=== PATIENT | male | born 1940 | race Caucasian/White ===

== ENCOUNTER 2024-10-25 13:19 | Observation (INO) | payer MEDICARE, OTHER ==
[~2024-10-25] VITALS: Ht 180.3 cm; Wt 91.3 kg
[2024-10-25 13:49] LABS: VENOUS BASE EXCESS -1.6 (-2.0-2.0); VENOUS HCO3 23.2 MMOL/L (23.0-27.0); VENOUS O2 SATURATION 77.7 % (60.0-80.0); VENOUS PARTIAL PRESSURE CO2 39.6 mmHg (38.0-50.0); VENOUS PARTIAL PRESSURE O2 43.8 mmHg (30.0-50.0); VENOUS PH 7.386 UNITS (7.330-7.430); VENOUS STANDARD HCO3 22.7 MMOL/L; VENOUS TOTAL CO2 24.4 MMOL/L (24.0-28.0)
[2024-10-25 13:56] LABS: KETONE, URINE AUTO RFX NEGATIVE (NEGATIVE); LEUKOCYTE ESTERASE UR AUTO RFX NEGATIVE (NEGATIVE); NITRITE, URINE AUTO RFX NEGATIVE (NEGATIVE); RBC, URINE AUTO RFX 8 /HPF (0-3); SQUAM EPITHELIAL CELL UR AURFX 0 /HPF (0-6); WBC, URINE AUTO RFX 0 /HPF (0-3)
[2024-10-25 14:08] LABS: BASO # 0.1 10^3/uL (0.0-0.2); BASO % 0.6 % (0.0-1.0); EOS # 0.2 10^3/uL (0.0-0.5); EOS % 2.0 % (0.0-3.0); LYMPH # 1.7 10^3/uL (1.5-5.0); LYMPH % 15.4 % (24.0-44.0); MONO # 1.0 10^3/uL (0.0-0.8); MONO % 8.9 % (2.0-8.0); NEUTROPHILS # 7.9 10^3/uL (1.5-8.5); NEUTROPHILS % 72.5 % (36.0-66.0); PLATELET COUNT, AUTOMATED 239 10^3/uL (150-450)
[2024-10-25 14:29] LABS: OSMOLALITY SERUM 273 MOSM/KG (280-301)
[2024-10-25] MEDS ORDERED: ISOVUE-370 76% 100 ML VIAL As Ordered ONE (14:37)
[2024-10-25 14:40] LABS: ETHYL ALCOHOL (ETHANOL) < 0.003 % (0.000-0.010)
[2024-10-25 14:41] LABS: SALICYLATE LEVEL 10.8 MG/DL (<30)
[2024-10-25 14:42] LABS: ALT/SGPT 25 U/L (7.0-40); AST/SGOT 33 U/L (<34); CALCIUM LEVEL 8.7 MG/DL (8.3-10.6); CARBON DIOXIDE LEVEL 25 MMOL/L (20-31); CHLORIDE LEVEL 95 MMOL/L (98-107); CK-MB VALUE MASS 3.4 NG/ML (<3.6); CREATININE FOR GFR 0.76 MG/DL (0.70-1.30); GLOMERULAR FILTRATION RATE 89.2 (>35); POTASSIUM SERUM 4.1 MMOL/L (3.5-5.1); SODIUM LEVEL 130 MMOL/L (136-145)
[2024-10-25 14:44] VITALS: BP 194/88; TEMP 96.6; O2SAT 98
[2024-10-25 14:46] LABS: CPK CREATINE PHOSPHOKINASE 142 U/L (46-171); MB/CK RELATIVE INDEX 2.39 (< OR =4)
[2024-10-25 15:05] LABS: INR 1.77
[2024-10-25] MEDS ORDERED: AZEL1SPR3 NARES (15:21)
[2024-10-25] MEDS ORDERED: DOFE500C PO (15:21)
[2024-10-25] MEDS ORDERED: ZOLP-533 PO (15:21)
[2024-10-25] MEDS ORDERED: PANT20TA6 PO (15:21)
[2024-10-25] MEDS ORDERED: FLUO-96 PO (15:21)
[2024-10-25] MEDS ORDERED: ASPI81TA26 PO (15:21)
[2024-10-25] MEDS ORDERED: LOSA50TA28 PO (15:21)
[2024-10-25] MEDS ORDERED: XARE20TA PO (15:21)
[2024-10-25] MEDS ORDERED: TRAN1DIS4 TOP (15:21)
[2024-10-25] MEDS ORDERED: AMLO25TA PO (15:21)
[2024-10-25] MEDS ORDERED: ALPR1TAB6 PO (15:21)
[2024-10-25] MEDS ORDERED: NITR4TASL SL (15:21)
[2024-10-25] MEDS ORDERED: ROSU20TA86 PO (15:21)
[2024-10-25] MEDS ORDERED: SLOWTAB2 PO (15:21)
[2024-10-25 15:30] VITALS: BP 187/76; O2SAT 97
[2024-10-25 15:35] VITALS: BP 178/86
[2024-10-25] MEDS ORDERED: HOME MED LIST COMPLETE! XX SCH (16:20)
[2024-10-25] MEDS: NS (Normal Saline) 0.9% 1,000 ML IV ONE (17:09)
[2024-10-25] MEDS ORDERED: MAALOX 30 ML SUSP *UDC PO PRN (20:10)
[2024-10-25] MEDS ORDERED: MOM 30 ML SUSPENSION UDC PO PRN (20:10)
[2024-10-25] MEDS ORDERED: ACETAMINOPHEN 325 MG TAB PO PRN (20:10)
[2024-10-25] MEDS: amLODIPine 5 MG TAB PO ONE (20:12)
[2024-10-25 21:00] VITALS: BP 169/85; TEMP 96.6; O2SAT 98
[2024-10-25] MEDS: AZELASTINE 137 MCG NASAL SPY 30 ML SCH (21:00)
[2024-10-25] MEDS: DOCUSATE SODIUM 100 MG CAPSULE PO SCH (21:26)
[2024-10-25] MEDS: ROSUVASTATIN 10 MG TAB PO SCH (21:26)
[2024-10-25 23:30] VITALS: BP 155/84; TEMP 98.1; O2SAT 94
[2024-10-26] MEDS ORDERED: HALOPERIDOL LACTATE 5 MG/ML VIAL IV ONE (01:30)
[2024-10-26] MEDS: MAG SULF 1GM/100ML (MAG RUN) 1 GM in IV 1 EA IV ONE (02:09)
[2024-10-26] MEDS: OLANZapine INTRAMUSCULAR 10MG VIAL IM ONE (02:13)
[2024-10-26 03:09] VITALS: BP 137/74; TEMP 97.7; O2SAT 97
[2024-10-26 04:00] VITALS: BP 137/74; TEMP 97.7; O2SAT 97
[2024-10-26 06:06] LABS: PLATELET COUNT, AUTOMATED 219 10^3/uL (150-450)
[2024-10-26 06:25] LABS: CALCIUM LEVEL 8.7 MG/DL (8.3-10.6); CARBON DIOXIDE LEVEL 23.0 MMOL/L (20-31); CHLORIDE LEVEL 100.0 MMOL/L (98-107); CREATININE FOR GFR 0.75 MG/DL (0.70-1.30); GLOMERULAR FILTRATION RATE 89.5 (>35); POTASSIUM SERUM 3.6 MMOL/L (3.5-5.1); SODIUM LEVEL 134.0 MMOL/L (136-145)
[2024-10-26] MEDS: PANTOPRAZOLE 40MG VIAL IV SCH (09:00)
[2024-10-26 09:48] VITALS: BP 131/68; O2SAT 98
[2024-10-26] MEDS: FLUoxetine 20 MG CAP PO SCH (09:51)
[2024-10-26] MEDS: LOSARTAN 50 MG TABLET PO SCH (09:51)
[2024-10-26 09:52] VITALS: BP 131/68
[2024-10-26] MEDS: ASPIRIN 81 MG ENTERIC TABLET PO SCH (09:52)
[2024-10-26] MEDS: amLODIPine 5 MG TAB PO SCH (09:52)
[2024-10-26 12:00] VITALS: BP 142/79; TEMP 97.7; O2SAT 97
[2024-10-26] MEDS ORDERED: OLAN1TAB16 PO (14:32)
[2024-10-26] MEDS ORDERED: DIPH50CA PO (14:32)
[2024-10-26] MEDS ORDERED: OLANZapine 5 MG TAB PO SCH (18:00)
[2024-10-26] MEDS ORDERED: RIVAROXABAN 20MG TAB PO SCH (18:00)
== END 2024-10-26 14:50 | disposition home or self-care (01) ==
LOC: M ED 13:19 → M ED INP 13:20 → M MSPAV 23:22
PROVIDERS: ADMIT Student in an Organized Health Care Education/Training Program; ATTEND Internal Medicine Nephrology
DX: R41.0 Disorientation, unspecified (principal); E87.1 Hypo-osmolality and hyponatremia; S22.080A Wedge compression fracture of T11-T12 vertebra, initial encounter for closed fracture; X58.XXXA Exposure to other specified factors, initial encounter; Y92.9 Unspecified place or not applicable; I10 Essential (primary) hypertension; R10.9 Unspecified abdominal pain; D72.829 Elevated white blood cell count, unspecified; E78.5 Hyperlipidemia, unspecified; D50.9 Iron deficiency anemia, unspecified; I48.91 Unspecified atrial fibrillation; Z95.0 Presence of cardiac pacemaker; I25.10 Atherosclerotic heart disease of native coronary artery without angina pectoris; Z95.5 Presence of coronary angioplasty implant and graft; K21.9 Gastro-esophageal reflux disease without esophagitis; N40.0 Benign prostatic hyperplasia without lower urinary tract symptoms; Z88.8 Allergy status to other drugs, medicaments and biological substances; Z79.899 Other long term (current) drug therapy; Z79.82 Long term (current) use of aspirin; Z79.01 Long term (current) use of anticoagulants
CPT/HCPCS: 36415; 70450; 70496; 70498; 71045; 71250; 72128; 74176; 80047; 80048; 80076; 80143; 81001; 82077; 82140; 82550; 82553; 82803; 83605; 83930; 84145; 84443; 84484; 85025; 85027; 85610; 85730; 87040; 87486; 87581; 87633; 87798; 93005; 93041; 94760; 96372; 96374; 97116; 97161; 97165; 97530; 99285; G0378; J2359; J3475; Q9967